=== PATIENT | female | born 1960 | race Two or more races ===

== ENCOUNTER 2024-06-23 12:04 | Emergency (ER) | payer OTHER ==
[~2024-06-23] VITALS: Ht 147.3 cm; Wt 86.2 kg
[2024-06-23] MEDS ORDERED: SYNTHROID75 MCG PO (12:30)
[2024-06-23] MEDS ORDERED: ZESTORETIC 20-1 EACH PO (12:30)
[2024-06-23] MEDS ORDERED: CHILDREN'S ASPI81 MG PO (12:31)
[2024-06-23] MEDS ORDERED: SIMVASTATIN20 MG PO (12:31)
[2024-06-23] MEDS ORDERED: LIDOCAINE HCL 1% 10ML VIAL ONE (12:55)
[2024-06-23] MEDS ORDERED: LIDOCAINE HCL 1% 10ML VIAL PERCUT ONE (13:00)
[2024-06-23] MEDS ORDERED: TETANUS & DIPHTHERIA TOX,ADULT 0.5 ML VIAL IM ONE (13:15)
[2024-06-23] MEDS ORDERED: TETANUS DIPHTHERIA TOX. ADSOR 5 ML VIAL IM ONE (14:34)
== END 2024-06-23 15:33 | disposition home or self-care (01) ==
LOC: ER 12:07
DX: S01.82XA Laceration with foreign body of other part of head, initial encounter (principal); W18.39XA Other fall on same level, initial encounter; Y93.89 Activity, other specified; Y92.89 Other specified places as the place of occurrence of the external cause; I10 Essential (primary) hypertension; E03.8 Other specified hypothyroidism; S89.82XA Other specified injuries of left lower leg, initial encounter; S89.81XA Other specified injuries of right lower leg, initial encounter; E78.00 Pure hypercholesterolemia, unspecified

== ENCOUNTER → 2024-07-03 | Emergency (ER) | payer OTHER ==
[~2024-07-03] VITALS: Ht 147.3 cm; Wt 86.2 kg
[~2024-07-03] MED LIST: CHILDREN'S ASPI81 MG PO; SIMVASTATIN20 MG PO; SYNTHROID75 MCG PO; ZESTORETIC 20-1 EACH PO
== END | disposition home or self-care (01) ==
LOC: ER 09:56
DX: Z48.02 Encounter for removal of sutures (principal)